=== PATIENT | male | born 1990 | race Caucasian/White ===

== ENCOUNTER 2021-09-15 15:52 | Emergency (ER) | payer SELFPAY ==
[2021-09-15 16:20] VITALS: BP 122/70; PULSE 78; RESP 18; TEMP 36.2; O2SAT 96; BMI 21.9
--- NOTE | 2021-09-15 16:53 | ED_ITS ---
HPI - General Adult General Chief complaint: Ear Problems Stated complaint: earache/migranes for 3 days Time Seen by Provider: 09/15/21 16:46 Source: patient Mode of arrival: ambulatory Limitations: no limitations History of Present Illness HPI narrative: 31-year-old male presents to ED for left ear pain. Patient states left ear pain for the past 3 days. Patient denies any recent trauma to the head. Patient st ates no swelling or redness in front of or behind the ear. Patient denies any ear discharge. She denies any facial swelling, neck swelling, drooling, shortness of breath, or toothache. Patient admits to poor dental hygiene. Related Data Previous Rx's Medication Instructions Recorded amoxicillin 875 mg-potassium 1 tab PO Q12H 10 Days #20 tab 09/15/21 clavulanate 125 mg tablet naproxen 500 mg tablet 500 mg PO BID PRN 10 Days #20 tab 09/15/21 Allergies Allergy/AdvReac Type Severity Reaction Status Date / Time No Known Allergies Allergy Verified 09/15/21 16:23 Review of Systems Review of Systems: Left ear pain Yes all other systems are reviewed and are negative ON LICENSE OF [facility] Past Medical History Medical History (Updated 09/15/21 @ 16:59 by BARRY Christiansen) No known health problems Social History Social History Advance Directives: No Advance Directives Information Provided: No Physical Exam ED Vital Signs: Vital Signs - 24 hr 09/15/21 16:20 Temperature 97.2 F Pulse Rate 78 Respiratory Rate 18 Blood Pressure 122/70 Pulse Oximetry 96 BMI result Body Mass Index 21.9 Const General: cooperative, healthy appearing, comfortable, no acute distress, well developed, alert, awake and Physically active Orientation/consciousness: patient oriented x3 HENMT Head: Yes normal to inspection, Yes No palpable skull fracture present, Yes normocephalic, Yes atraumatic and No abrasion Ears: hearing grossly normal bilaterally, external ears normal, TM normal on the right, EAC's normal, mastoids normal, no periauricular adenopathy and TM abnormal (left) erythematous General nose exam: Normal external nose present and Normal nares present Face and sinus: Yes normal facial exam and Yes sinuses nontender Teeth and gingiva: poor dentition (But no abscess, drooling, change in voice, or trismus) Throat: Yes posterior oropharynx normal, Yes tonsils normal and Yes uvula midline Eyes General: appearance normal, both eyes and all related structures Neck Neck: Yes normal visual inspection, Yes full ROM, Yes no lymphadenopathy, Yes no meningeal signs, Yes trachea midline, Yes supple, No anterior neck swelling and No tender Chest Chest palpation & inspection: normal inspection of the chest and normal palpation of entire chest wall Breast/axilla inspection: normal inspection of the breasts Resp Effort & Inspection: normal respiratory effort and able to speak in complete sentences Auscultation: clear to auscultation bilaterally Cardio Jugular venous distension: no JVD Heart sounds: S1 normal heart sound present and S2 normal heart sound present GI Inspection: Yes normal to inspection and No abdominal wall ecchymosis Palpation (GI): Soft to palpation, not firm, nontender, no guarding and not ri gid General: No CVA tenderness and Yes no CVA tenderness Back/Spine/Pelvis Back: no CVA tenderness, No CVA tenderness and No back tenderness Skin General skin exam: no rashes or lesions noted and elasticity normal Neuro General: patient oriented x3, gait normal, tone normal and no meningeal signs Cranial nerves: Yes CN's II-XII intact bilaterally Extrem General: Yes normal to inspection and Yes full ROM Psych Appearance: grossly normal, well kempt and not disheveled Course Course Course Narrative: Left ear evaluation Reevaluation(s) Reevaluation #1: Ear exam indicate otitis media. Patient will be discharged with pain medication antibiotics Time: 16:[address] [facility] Narrative Medical decision making narrative: Otitis media Discharge Plan Discharge Clinical Impression: Otitis media Patient Disposition: Home, Self-Care Instructions: Ear Infection (ED) Additional Instructions: Physical exam indicate infection. You will be discharged with pain medication antibiotics. Please follow-up with the primary care provider. Return to ED for worsening ear pain, ear discharge, bleeding from ear, swelling or redness in front or behind the ear, severe headache, loss of vision, slurred speech, facial droop, toothache, facial swelling, tongue swelling, shortness of breath, chest pain, change in voice, drooling, or any other concerning symptoms. Prescriptions: New amoxicillin-pot clavulanate 875-125 mg tablet 1 tab PO Q12H 10 Days Qty: 20 0RF naproxen 500 mg tablet 500 mg PO BID PRN (Reason: pain) 10 Days Qty: 20 0RF Stand Alone Forms: Work/School Release Interventions: ED Discharge Assessment Last Done: 09/15/21 17:21 Discharge Date/Time: 09/15/21 17:22 Print Language: Amharic
[2021-09-15] MEDS: Ibuprofen 800 MG TABLET PO (17:18)
== END 2021-09-15 17:22 | disposition home or self-care (01) ==
LOC: HO.ED 17:03
PROVIDERS: Emergency Provider Emergency Medicine
DX: H92.03 Otalgia, bilateral (principal); H66.93 Otitis media, unspecified, bilateral; Z79.899 Other long term (current) drug therapy
CPT/HCPCS: 99283